=== PATIENT | male | born 1940 | race Caucasian/White ===

== ENCOUNTER 2016-02-21 15:11 | Emergency (ER) | payer MEDICARE, OTHER ==
[~2016-02-21] VITALS: Ht 175.3 cm; Wt 72.6 kg
[2016-02-21] MEDS ORDERED: SILVER NITRATE APPLICATOR 1 EA BOX ONE ×4 (16:29→18:08)
[2016-02-21] MEDS ORDERED: SILVER NITRATE APPLICATOR 1 EA BOX TP ONE ×4 (17:00→18:00)
[2016-02-21 17:09] LABS: BASOPHILS # (AUTO) 0.1 /CMM (0.0-0.2); BASOPHILS % (AUTO) 0.7 % (0.0-2.0); DIFF TOTAL % 100 %; EOSINOPHILS # (AUTO) 0.3 /CMM (0.0-0.7); EOSINOPHILS % (AUTO) 4.4 % (0.0-6.0); HEMATOCRIT 40 % (39-51); HEMOGLOBIN 13.5 g/dL (13.5-17.5); LYMPHOCYTES # (AUTO) 1.8 /CMM (0.8-4.8); LYMPHOCYTES % (AUTO) 21.9 % (20.0-44.0); MEAN CORPUSCULAR HEMOGLOBIN 31 PG (26.0-33.0); MEAN CORPUSCULAR HGB CONC 34 g/dl (31.0-36.0); MEAN CORPUSCULAR VOLUME 93 fL (80-96); MONOCYTES # (AUTO) 0.7 /CMM (0.1-1.30); MONOCYTES % (AUTO) 8.6 % (2.0-12.0); NEUTROPHILS # (AUTO) 5.2 /CMM (1.8-8.9); NEUTROPHILS % (AUTO) 64.4 % (43.0-81.0); PLATELET COUNT (AUTO) 208 /CMM (150-450); RED BLOOD CELL COUNT(AUTO) 4.31 MIL/uL (4.5-6.0)
[2016-02-21] MEDS ORDERED: OXYMETAZOLINE HCL NASAL SPRAY 30 ML BOTTLE NS ONE ×2 (18:00→18:06)
[2016-02-21] MEDS ORDERED: LIDOCAINE 4% PF AMPUL 40 MG/ML AMPUL ONE (19:06)
[2016-02-21 20:36] VITALS: BP 143/87
[2016-02-21] MEDS ORDERED: LIDOCAINE 2% 20 ML MDV TP ONE (21:00)
== END 2016-02-21 20:37 | disposition home or self-care (01) ==
LOC: ER 15:12
DX: R04.0 Epistaxis (principal); Z88.2 Allergy status to sulfonamides; Z88.1 Allergy status to other antibiotic agents; Z88.8 Allergy status to other drugs, medicaments and biological substances
CPT/HCPCS: 36415; 85025; 99283; A4606; A6402; J3490; Z7610